=== PATIENT | female | born 1995 | race Hispanic/Latino ===

== ENCOUNTER 2023-07-27 08:42 | Emergency (ER) | payer OTHER ==
[~2023-07-27] VITALS: Ht 152.4 cm; Wt 56.7 kg
[2023-07-27] MEDS ORDERED: PHENAZOPYRIDINE HCL 200 MG TABLET PO ONE (09:00)
[2023-07-27] MEDS ORDERED: IBUPROFEN 600 MG TABLET PO ONE (09:00)
[2023-07-27 09:17] LABS: ADD UA MICROSCOPIC NO; APPEARANCE,URINE CLEAR (CLEAR); BILIRUBIN,URINE NEGATIVE (NEGATIVE); COLOR,URINE LIGHT-YELLOW (YELLOW); GLUCOSE, URINE (UA) NEGATIVE (NEGATIVE); KETONES,URINE NEGATIVE (NEGATIVE); LEUKOCYTE ESTERASE ,URINE NEGATIVE Leu/uL (NEGATIVE); NITRATE,URINE NEGATIVE (NEGATIVE); OCCULT BLOOD,URINE NEGATIVE (NEGATIVE); PH,URINE 6.5 (5.0-8.0); PROTEIN,URINE NEGATIVE (NEGATIVE); UROBILINOGEN,URINE 0.2 mg/dL (0.2-1.0)
[2023-07-27 09:19] LABS: HCG,QUALITATIVE URINE NEGATIVE (NEGATIVE)
[2023-07-27 09:29] LABS: SARS-CoV-2, RNA, NAAT NEGATIVE SARS CoV-2 (NEGATIVE)
[2023-07-27 09:31] LABS: INFLUENZA TYPE A Negative For Type A (NEGATIVE); INFLUENZA TYPE B Negative For Type B (NEGATIVE)
[2023-07-27 09:37] LABS: BASOPHILS # (AUTO) 0.01 K/uL (0.00-0.20); BASOPHILS % (AUTO) 0.2 % (0.0-5.0); EOSINOPHILS # (AUTO) 0.16 K/uL (0.00-0.70); EOSINOPHILS % (AUTO) 3.2 % (0.0-8.0); HEMATOCRIT 41.6 % (36-48); IMMATURE GRANULOCYTE ABSOLUTE 0.01 K/uL (0-1); LYMPHOCYTES # (AUTO) 1.6 K/uL (1.0-4.8); LYMPHOCYTES % (AUTO) 31.2 % (21.0-51.0); MEAN CORPUSCULAR HEMOGLOBIN 30.1 pg (27.0-33.0); MEAN CORPUSCULAR HGB CONC 33.4 g/dL (32.0-36.0); MONOCYTES # (AUTO) 0.4 K/uL (0.1-1.0); MONOCYTES % (AUTO) 7.5 % (3.0-13.0); NEUTROPHILS # (AUTO) 2.9 K/uL (1.8-7.7); NEUTROPHILS % (AUTO) 57.7 % (40.0-77.0); PLATELET COUNT (AUTO) 202 K/uL (130-400); RED BLOOD CELL COUNT(AUTO) 4.62 MIL/uL (4.00-5.50); RED CELL DISTRIBUTION WIDTH 12.1 % (11.0-15.5); WHITE BLOOD COUNT (AUTO) 5.1 K/uL (4.8-10.8)
[2023-07-27 09:47] LABS: CREATININE 0.6 mg/dL (0.5-1.5)
[2023-07-27 09:52] LABS: ALBUMIN 3.5 g/dL (3.5-5.0); BILIRUBIN,TOTAL 0.5 mg/dL (0.2-1.0); TOTAL PROTEIN, SERUM 7.5 g/dL (6.0-8.3)
[2023-07-27] MEDS ORDERED: PHEN-847 PO (10:22)
[2023-07-27 10:32] VITALS: BP 117/79; PULSE 80; RESP 16; O2SAT 98
== END 2023-07-27 10:40 | disposition home or self-care (01) ==
LOC: EDBD 08:42 → EDH 08:42
DX: N32.89 Other specified disorders of bladder (principal); E78.00 Pure hypercholesterolemia, unspecified; J45.909 Unspecified asthma, uncomplicated; Z20.822 Contact with and (suspected) exposure to COVID-19
CPT/HCPCS: 99283; 87635; 80053; 85025; 87804 ×2; 81003; 81025; 36415; C9803

== ENCOUNTER 2024-06-11 10:53 | Emergency (ER) | payer SELFPAY ==
[~2024-06-11] VITALS: Ht 154.9 cm; Wt 58.1 kg
[~2024-06-11 10:53] MED LIST: PHEN-847 PO
[2024-06-11] MEDS: FAMOTIDINE 20MG VIAL IV ONE (11:43)
[2024-06-11] MEDS: ketOROlac 15MG/ML VIAL (15MG/ML) IV ONE (11:43)
[2024-06-11] MEDS: Solu-medROL 125MG VIAL IVP ONE (11:43)
[2024-06-11] MEDS: DiphenhydrAMINE HCL 50 MG/ML VIAL IV ONE (11:44)
[2024-06-11] MEDS ORDERED: FAMO-136 PO (12:17)
[2024-06-11] MEDS ORDERED: CEPH500B PO (12:17)
[2024-06-11] MEDS ORDERED: METH4TAB3 PO (12:17)
[2024-06-11] MEDS ORDERED: DIPH-1242 PO (12:17)
[2024-06-11 12:34] VITALS: BP 121/68; PULSE 76; RESP 16; TEMP 97.8; O2SAT 97
== END 2024-06-11 13:17 | disposition home or self-care (01) ==
LOC: EDH 10:53
DX: T63.441A Toxic effect of venom of bees, accidental (unintentional), initial encounter (principal); M79.89 Other specified soft tissue disorders; J45.909 Unspecified asthma, uncomplicated; E78.00 Pure hypercholesterolemia, unspecified; Z79.899 Other long term (current) drug therapy; Y92.89 Other specified places as the place of occurrence of the external cause
CPT/HCPCS: 99284; 96374; 96375; J1200; J3490; J2919; J1885